=== PATIENT | male | born 1995 | race Caucasian/White ===

== ENCOUNTER → 2024-10-30 15:16 | Outpatient (BNVA) | payer OTHER, SELFPAY | PROVIDERS: Visit Provider Physician Assistant Medical | DX: S93.402A Sprain of unspecified ligament of left ankle, initial encounter (principal); S82.832A Other fracture of upper and lower end of left fibula, initial encounter for closed fracture; X50.1XXA Overexertion from prolonged static or awkward postures, initial encounter | CPT/HCPCS: 73610; 99202 ==

== ENCOUNTER → 2024-11-06 09:51 | Outpatient (BNVA) | payer OTHER, SELFPAY | PROVIDERS: Visit Provider Physician Assistant Medical | DX: S93.402A Sprain of unspecified ligament of left ankle, initial encounter (principal); S82.832A Other fracture of upper and lower end of left fibula, initial encounter for closed fracture; X50.1XXA Overexertion from prolonged static or awkward postures, initial encounter | CPT/HCPCS: 99213 ==

== ENCOUNTER → 2024-11-10 09:18 | Outpatient (BNVA) | payer OTHER, SELFPAY | PROVIDERS: Visit Provider Physician Assistant | DX: S82.832D Other fracture of upper and lower end of left fibula, subsequent encounter for closed fracture with routine healing (principal); S93.402D Sprain of unspecified ligament of left ankle, subsequent encounter; X50.1XXD Overexertion from prolonged static or awkward postures, subsequent encounter | CPT/HCPCS: 99214 ==

== ENCOUNTER 2024-11-22 14:14 | Outpatient (AMB) | payer OTHER, SELFPAY ==
--- NOTE | 2024-11-22 14:18 | A.OFFVIS_ITS ---
Vital Signs 11/22/24 14:31 Height 5 ft 5 in Weight 145 lb BMI 24.1 Intake Visit Reasons: [employer]- L ankle sprain WC DOI 10/30/24 Intake Note: Tommy is a 29 year old male who presents today for a new patient evaluation of left ankle sprain, s/p work injury, DOI 10/30/24. 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 He was seen at work c onnection, where x-rays were obtained, placed in a walking boot and referred to orthopedics. He has not been applying weight to his left leg as he was unsure he was able to bear weight. Currently he has tenderness at the lateral aspect of ankle and at times he has numbness in his foot. No other tx. Allergies No Known Allergies Allergy (Verified 11/22/24 14:30) Medication List - Last Reviewed 11/22/24 by FORTINO Peacock albuterol sulfate 90 mcg/actuation 2 puffs inhalation Q6H PRN ibuprofen 800 mg PO TID PRN HPI HPI [employer]- L ankle sprain WC DOI 10/30/24: Details: 29-year-old gentleman presents to the office today for an injury he sustained to his left ankle on 10/30/2024 while at work. 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 He immediately felt discomfort in the ankle and was later seen at the work connection. X-rays were obtained which were negative for acute fractures or dislocations. He was given an order for a walking boot and referred to our office for ortho eval. He states he has been nonweightbearing since the date of injury. 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 He has diffuse swelling over the lateral aspect of the ankle with tenderness over the ATFL. Syndesmosis pain-free. He has normal sensation and pulses are intact. Results Reviewed Results Reviewed: X-rays of the left ankle obtained in the office today and reviewed by me are negative for any acute or chronic abnormalities. Assessment & Plan Assessment & Plan (1) Left ankle sprain: Code(s): S93.402A - Sprain of unspecified ligament of left ankle, initial encounter Category: Medical Plan: At this time he was fit for a new boot as the 1 he was provided with was too small. He can weightbear as tolerated. He will wear this for the next few weeks while working with physical therapy to regain motion and strengthening exercises. He was also given a lace-up ankle brace to transition to for continued support. I would like to see him back in 6 weeks for re-evaluation sooner if needed. Orders: Orders XR ankle LT min 3V 11/22/24 M25.572 - Pain in left ankle and joints of left foot Coding Level of Care Code New Pt Level 3 (48691) Complex EM visit Add On G2211 Diagnoses Left ankle sprain S93.402A
[2024-11-22 14:31] VITALS: BMI 24.1
== END 2024-11-22 15:54 | disposition home or self-care (01) ==
LOC: HO.HOS 14:14
PROVIDERS: Visit Provider Physician Assistant
DX: S93.402A Sprain of unspecified ligament of left ankle, initial encounter (principal); X50.9XXA Other and unspecified overexertion or strenuous movements or postures, initial encounter; Z04.2 Encounter for examination and observation following work accident
CPT/HCPCS: 99203; G2211

== ENCOUNTER 2024-11-22 14:14 | Outpatient (REF) | payer OTHER, SELFPAY ==
--- NOTE | ~2024-11-22 | XR_ITS ---
CLINICAL HISTORY: M25.572 - Pain in left ankle and joints of left foot 3 view left ankle Comparison: None Findings: No acute fractures or dislocations. No significant loss of joint space, osteophytes, or erosions. No ankle effusion. No radiopaque foreign body. There is lateral soft tissue swelling. Correlate for soft tissue injury versus cellulitis IMPRESSION: 1. No acute osseous findings. 2. Lateral soft tissue swelling. This document has been electronically signed by: Curtis Johnson MD on 11/24/2024 08:57:10
== END 2024-11-22 14:15 | disposition home or self-care (01) ==
LOC: HO.HOSX 14:14
PROVIDERS: Visit Provider Physician Assistant
DX: M25.572 Pain in left ankle and joints of left foot (principal); S93.402A Sprain of unspecified ligament of left ankle, initial encounter
CPT/HCPCS: 73610; 99202

== ENCOUNTER → 2024-11-22 14:43 | Outpatient (BNV) | payer OTHER, SELFPAY | PROVIDERS: Visit Provider Specialist | DX: M25.572 Pain in left ankle and joints of left foot (principal) | CPT/HCPCS: 73610 ==

== ENCOUNTER 2025-01-04 14:35 | Outpatient (AMB) | payer OTHER, SELFPAY ==
--- NOTE | 2025-01-04 14:56 | MHC.OFFVIS ---
Vital Signs 01/04/25 14:58 Height 5 ft 5 in Weight 145 lb BMI 24.1 Intake Visit Reasons: OV 6wk f/u left ankle sprain Intake Note: Tommy is a 29 year old male who presents today for a new patient evaluation of left ankle sprain, s/p work injury, DOI 10/30/24. At his last visit he was referred to physical therapy. He was also provided a lace up ankle brace to transition into for continued support. He will follow up in 6 weeks for re-evaluation. Today patient reports ankle brace provides him with support. He has not started physical therapy, he states that he is scheduled for physical as their office was booking out. Allergies No Known Allergies Allergy (Verified 01/04/25 15:00) Medication List - Last Reconciled 01/04/25 by Keenan Soriano PA-C albuterol sulfate 90 mcg/actuation 2 puffs inhalation Q6H PRN ibuprofen 800 mg PO TID PRN HPI HPI OV 6wk f/u left ankle sprain: Details: 29-year-old gentleman returns to the office today for a 6 week follow-up left ankle sprain. He states he transitioned out of the boot into the lace-up ankle brace and he has been doing well. He has yet to start physical therapy but he does have an appointment scheduled. He has intermittent discomfort however I does tend to resolve and he is able to participate in most activities without discomfort. 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 He has trace swelling over the lateral aspect of the ankle with tenderness over the ATFL. Syndesmosis pain-free. He has normal sensation and pulses are intact. Assessment & Plan Assessment & Plan (1) Left ankle sprain: Code(s): S93.402A - Sprain of unspecified ligament of left ankle, initial encounter Category: Medical Plan: He will continue with his physical therapy as planned and continue activities as tolerated with a lace-up breaks as needed. If symptoms arise or there is any concerns he will contact our office otherwise follow up as needed. Coding Level of Care Code Est Pt Level 3 (93101) Complex EM visit Add On G2211 Diagnoses Left ankle sprain S93.402A
[2025-01-04 14:58] VITALS: BMI 24.1
== END 2025-01-04 15:57 | disposition home or self-care (01) ==
LOC: HO.HOS 14:36
PROVIDERS: Visit Provider Physician Assistant
DX: S93.402A Sprain of unspecified ligament of left ankle, initial encounter (principal)
CPT/HCPCS: 99213; G2211

== ENCOUNTER → 2025-01-04 14:35 | Outpatient (BNVA) | payer OTHER, SELFPAY | PROVIDERS: Visit Provider Physician Assistant | DX: S93.402A Sprain of unspecified ligament of left ankle, initial encounter (principal); X50.1XXA Overexertion from prolonged static or awkward postures, initial encounter; Y93.9 Activity, unspecified; Y92.69 Other specified industrial and construction area as the place of occurrence of the external cause; Y99.0 Civilian activity done for income or pay; Z04.2 Encounter for examination and observation following work accident | CPT/HCPCS: 99212 ==

== ENCOUNTER 2025-03-06 08:07 | Outpatient (RCR) | payer OTHER, SELFPAY ==
--- NOTE | 2025-01-24 11:59 | MHC.PT.EP ---
[facility] [place] [facility] [place] [facility] [place] [facility] [address] Renee Guevara [address] [phone] F: [phone] F: [phone] F: [phone] F: [phone] Physical Therapy Plan of Care Date of Evaluation: 01/24/25 Date of Surgery: n/a Diagnosis: Sprain of unspecified ligament of left ankle, initial encounter Left ankle sprain Assessment: Pt is a pleasant and motivated 29yo M who presents to PT with L ankle pain after rolling his ankle at work on 10/30/24. He presents to PT with current impairments in pain, decreased ROM, decreased strength, decreased muscle length, decreased balance/proprioception, and impaired gait. He is limited functionally by running, squatting, and sleeping. He is an excellent candidate for skilled PT in order to address current impairments to facilitate return to PLOF. He is recommended to be seen 2x/week for 4 weeks and will be reassessed at that time Frequency and Duration: The patient will be seen 2x/week for 4 weeks Short Term Goals: Pt will be I with HEP to promote self management of symptoms Pt will improve L DF ROM by 5 degrees Fci Goals: Pt will achieve full ROM and strength all planes of left ankle to promote improved gait mechanics without pain Pt will return to running 2 miles without pain or instability Treatment Plan: Modalities to reduce pain, spasms and effusion. Manual therapy to restore motion and function. Therapeutic exercise to improve strength and flexibility. Neuromuscular re-education for posture and balance. Therapeutic activities to return to functional activities of daily living. Electronically signed by: Shea Islas, PT, DPT Please sign and return to therapist. Thank you for your referral.
== END 2025-04-17 11:42 | disposition home or self-care (01) ==
LOC: HO.PTS 08:07
PROVIDERS: Visit Provider Orthopaedic Surgery
DX: S93.402D Sprain of unspecified ligament of left ankle, subsequent encounter (principal)
CPT/HCPCS: 97110; 97112; 97140; 97161